=== PATIENT | female | born 1990 | race Caucasian/White ===

== ENCOUNTER 2017-05-30 14:23 | Emergency (ER) | payer MEDICAID ==
[~2017-05-30] VITALS: Ht 157.5 cm; Wt 58.5 kg
[2017-05-30 14:38] VITALS: BP 124/77; Ht 157.5 cm; Wt 58.5 kg
== END 2017-05-30 15:39 | disposition left against medical advice (07) ==
LOC: ED 14:23
DX: Z53.21 Procedure and treatment not carried out due to patient leaving prior to being seen by health care provider (principal)

== ENCOUNTER 2017-05-31 07:50 | Emergency (ER) | payer MEDICAID ==
[~2017-05-31] VITALS: Ht 157.5 cm; Wt 57.6 kg
[2017-05-31 08:02] VITALS: Ht 157.5 cm; Wt 57.6 kg
[2017-05-31 08:55] LABS: BASOPHIL % 0.5 % (0-2); PLATELET COUNT 277 x10^3mcL (130-400); RED CELL DISTRIBUTION WIDTH 12.9 % (11.5-14.5)
[2017-05-31 09:41] LABS: CALCIUM 9.6 mg/dL (8.5-10.1); CARBON DIOXIDE 23.9 mmol/L (21-32); CHLORIDE SERUM 101 mmol/L (98-107); CREATININE SERUM 0.6 mg/dL (0.6-1.0); GFR1 > 60 mL/min; GLUCOSE SERUM 107 mg/dL (74-106); POTASSIUM SERUM 3.9 mmol/L (3.5-5.1); SODIUM SERUM 138 mmol/L (136-145)
[2017-05-31 09:54] LABS: ALBUMIN 4.3 g/dL (3.4-5.0); ALKALINE PHOSPHATASE 80 U/L (46-116); ALT/SGPT 34 U/L (14-59); AST/SGOT 21 U/L (15-37); BILIRUBIN TOTAL 0.41 mg/dL (0.20-1.00); FREE T4 1.12 ng/dL (0.76-1.46)
[2017-05-31 09:56] LABS: TOTAL PROTEIN, SERUM 8.6 g/dL (6.4-8.2)
[2017-05-31 10:44] VITALS: BP 114/70
== END 2017-05-31 10:44 | disposition home or self-care (01) ==
LOC: ED 07:50
PROVIDERS: Emergency Medicine
DX: H81.09 Meniere's disease, unspecified ear (principal); R51 Headache
CPT/HCPCS: 84439; 87804; J0780; J1100; J1885; J7030

== ENCOUNTER 2019-04-03 00:06 | Emergency (ER) | payer OTHER ==
[~2019-04-03] VITALS: Ht 157.5 cm; Wt 53.1 kg
[2019-04-03 00:10] VITALS: Ht 157.5 cm; Wt 53.1 kg
[2019-04-03 04:00] LABS: CALCIUM 9.1 mg/dL (8.5-10.1); CARBON DIOXIDE 23.9 mmol/L (21-32); CHLORIDE SERUM 103 mmol/L (98-107); CREATININE SERUM 0.6 mg/dL (0.6-1.0); GFR1 > 60 mL/min; GLUCOSE SERUM 104 mg/dL (74-106); POTASSIUM SERUM 3.6 mmol/L (3.5-5.1); SODIUM SERUM 138 mmol/L (136-145)
[2019-04-03 04:02] LABS: BASOPHIL % 0.5 % (0-2); PLATELET COUNT 216 x10^3mcL (130-400); RED CELL DISTRIBUTION WIDTH 12.5 % (11.5-14.5)
[2019-04-03 05:07] VITALS: BP 113/65
== END 2019-04-03 05:07 | disposition home or self-care (01) ==
LOC: ED 00:06
PROVIDERS: Emergency Medicine
DX: G44.209 Tension-type headache, unspecified, not intractable (principal)
CPT/HCPCS: J0780; J1100; J1200; J2765